=== PATIENT | female | born 1955 | race Caucasian/White ===

== ENCOUNTER 2020-03-22 10:30 | Outpatient (CLI) | payer MEDICARE, OTHER ==
--- NOTE | 2020-03-22 10:42 | RAD ---
EXAM: Two views chest PROVIDED CLINICAL HISTORY: Fever, COPD. COMPARISON: 03/14/2020 FINDINGS: Cardiac silhouette and pulmonary vasculature are within normal limits. The lungs are clear. The osse ous structures have a normal appearance. No interval change compared to prior study. IMPRESSION: No acute cardiopulmonary process.
== END 2020-03-22 10:31 | disposition home or self-care (01) ==
LOC: NAV RAD 10:30
PROVIDERS: ATTEND Nurse Practitioner Adult Health
DX: J44.9 Chronic obstructive pulmonary disease, unspecified (principal); R50.9 Fever, unspecified
CPT/HCPCS: 71046